=== PATIENT | male | born 1960 ===

== ENCOUNTER 2018-12-10 17:14 | Day surgery (SDC) | payer BC, MEDICARE ==
[~2018-12-10] VITALS: Ht 167.6 cm; Wt 98.1 kg
[2018-12-10] MEDS ORDERED: fentaNYL INJECTION 100 MCG/2 ML AMP IVP ONE (17:30)
--- NOTE | 2018-12-10 17:33 | ED Abdominal Pain ---
General Chief Complaint: Rect Problems Stated Complaint: UPPER ABD PAIN Source of Information: Patient Exam Limitations: No Limitations History of Present Illness Date Seen by Provider: Dec 10, 2018 Time Seen by Provider: 17:31 Initial Comments To ER per EMS with reports of abdominal cramping and bloody stools. He had colonoscopy done on Saturday at [facility] in [place], had 2 polyps removed and has since been having abdominal cramping bloody stools and generalized weakness. He takes a baby aspirin daily, history of end-stage renal disease on hemodialysis here at [facility] on Saturday, he received a full dialysis treatment today just prior to arrival here. No fevers or chills. Both security management specialist and primary care provider are out of [facility]. He does still produce urine. Timing/Duration: 2-3 Days Severity/Quality: Cramping Location: Generalized Abdomen Radiation: No Radiation Activities at Onset: None Associated Symptoms: Denies Symptoms Allergies and Home Medications Allergies Coded Allergies: No Known Drug Allergies (Unverified , 12/10/18) Patient Home Medication List Home Medication List Reviewed: Yes Review of Systems Review of Systems Constitutional: see HPI EENTM: No Symptoms Reported Respiratory: No Symptoms Reported Cardiovascular: No Symptoms Reported Gastrointestinal: See HPI, Abdominal Pain Genitourinary: No Symptoms Reported Musculoskeletal: no symptoms reported Skin: no symptoms reported Psychiatric/Neurological: No Symptoms Reported Endocrine: No Symptoms Reported Hematologic/Lymphatic: No Symptoms Reported Physical Exam Vital Signs Vital Signs - First Documented 12/10/18 17:20 Temp 36.6 Pulse 87 Resp 18 B/P (MAP) 144/94 (111) Pulse Ox 100 O2 Delivery Room Air Capillary Refill : Less Than 3 Seconds Height/Weight/BMI Height: '" Weight: lbs. oz. kg; 32.00 BMI Method: General Appearance: WD/WN, no apparent distress, other (alert and oriented no distress pleasant cooperative. Vitals are stable.) Neck: non-tender, full range of motion Respiratory: normal breath sounds, no respiratory distress, no accessory muscle use Gastrointestinal: normal bowel sounds, soft, tenderness Extremities: normal range of motion, non-tender Neurologic/Psychiatric: alert, normal mood/affect, oriented x 3 Skin: normal color, warm/dry Progress/Results/Core Measures Results/Orders Lab Results Laboratory Tests Test 12/10/18 17:23 12/10/18 17:36 Range/Units White Blood Count 9.9 4.3-11.0 10^3/uL Red Blood Count 4.03 L 4.35-5.85 10^6/uL Hemoglobin 12.9 L 13.3-17.7 G/DL Hematocrit 37 L 40-54 % Mean Corpuscular Volume 91 80-99 FL Mean Corpuscular Hemoglobin 32 25-34 PG Mean Corpuscular Hemoglobin Concent 35 32-36 G/DL Red Cell Distribution Width 12.7 10.0-14.5 % Platelet Count 181 130-400 10^3/uL Mean Platelet Volume 10.0 7.4-10.4 FL Neutrophils (%) (Auto) 78 H 42-75 % Lymphocytes (%) (Auto) 15 12-44 % Monocytes (%) (Auto) 5 0-12 % Eosinophils (%) (Auto) 1 0-10 % Basophils (%) (Auto) 0 0-10 % Neutrophils # (Auto) 7.7 1.8-7.8 X 10^3 Lymphocytes # (Auto) 1.5 1.0-4.0 X 10^3 Monocytes # (Auto) 0.5 0.0-1.0 X 10^3 Eosinophils # (Auto) 0.1 0.0-0.3 10^3/uL Basophils # (Auto) 0.0 0.0-0.1 10^3/uL Sodium Level 139 135-145 MMOL/L Potassium Level 3.7 3.6-5.0 MMOL/L Chloride Level 91 L 98-107 MMOL/L Carbon Dioxide Level 31 21-32 MMOL/L Anion Gap 17 H 5-14 MMOL/L Blood Urea Nitrogen 20 H 7-18 MG/DL Creatinine 3.70 H 0.60-1.30 MG/DL Estimat Glomerular Filtration Rate 17 BUN/Creatinine Ratio 5 Glucose Level 214 H 70-105 MG/DL Calcium Level 9.0 8.5-10.1 MG/DL Corrected Calcium 8.9 8.5-10.1 MG/DL Total Bilirubin 0.6 0.1-1.0 MG/DL Aspartate Amino Transf (AST/SGOT) 23 5-34 U/L Alanine Aminotransferase (ALT/SGPT) 32 0-55 U/L Alkaline Phosphatase 130 40-136 U/L Total Protein 7.9 6.4-8.2 GM/DL Albumin 4.1 3.2-4.5 GM/DL Stool Occult Blood Immunoassay POSITIVE H NEGATIVE My Orders Orders - EARLINE DELANEY APRN Cbc With Automated Diff (12/10/18 17:30) Comprehensive Metabolic Panel (12/10/18 17:30) Ua Culture If Indicated (12/10/18 17:30) Ed Iv/Invasive Line Start (12/10/18 17:30) Ct Abdomen/Pelvis Wo (12/10/18 17:30) Red Blood Count (12/10/18 17:30) Fentanyl Injection (Sublimaze Injection (12/10/18 17:30) Occult Blood Stool (12/10/18 17:37) Medications Given in ED Current Medications Medications Dose Ordered Sig/Harlan Route Start Time Stop Time Status Last Admin Dose Admin Fentanyl Citrate 50 mcg ONCE ONCE IVP 12/10/18 17:30 12/10/18 17:32 DC 12/10/18 18:00 50 MCG Vital Signs/I&O 12/10/18 12/10/18 17:20 18:00 Temp 36.6 36.6 Pulse 87 Resp 18 B/P (MAP) 144/94 (111) Pulse Ox 100 O2 Delivery Room Air Diagnostic Imaging Diagonstic Imaging: Xray Comments NAME: TOYA ACEVEDO [facility] REC#: [id number] PT STATUS: REG ER : 1960 PHYSICIAN: EARLINE DELANEY MARKET RESEARCH ANALYST ADMIT DATE: 12/10/18/ER Draft Date of Exam:12/10/18 CT ABDOMEN/PELVIS WO PROCEDURE: CT abdomen and pelvis without contrast. TECHNIQUE: Multiple contiguous axial images were obtained through the abdomen and pelvis without the use of intravenous contrast. Auto Exposure Controls were utilized during the CT exam to meet ALARA standards for radiation dose reduction. INDICATION: Rectal bleeding after colonoscopy. TECHNIQUE: Axial noncontrast CT of the abdomen and pelvis. COMPARISON: None. FINDINGS: There is ground-glass opacity in the lung bases, likely atelectasis. The heart is normal in size. The liver demonstrates no focal lesions. The spleen appears normal. The pancreas is normal. The adrenal glands appear normal. The kidneys are normal with no hydronephrosis or calculi seen. The bowel loops are nondistended. The colon demonstrates no focal wall thickening. The appendix is normal. No free fluid or free air is seen. No acute osseous abnormality is seen. There is calcific atherosclerosis. Degenerative changes are seen in the spine, with findings of diffuse idiopathic skeletal hyperostosis throughout the thoracic and lumbar spine. IMPRESSION: 1. No acute abnormality seen in the abdomen or pelvis. Dictated on workstation # [id number] Dict: 12/10/189 Trans: 12/10/18 1824 [id number] Interpreted by: PRIYANKA MACIAS MD Electronically signed by: Departure Communication (Admissions) Time/Spoke to Admitting Phy: 18:38 1742-patient had a stool here which was grossly bloody grape jelly consistency large volume. 1835-spoke with Dr. Bull from gastroenterology at [facility] who did the colonoscopy, he states that the polyps that he remove were fairly large, being hemodialysis patient he would recommend hospital observation overnight to evaluate for any recurrent or progressive bleeding. This could be done here or if the hospitalist here is not comfortable could be transferred to [facility]. I then spoke with Dr. Ríos here, since the patient completed a full dialysis session today he is fine with keeping the patient here and observing, repeat hemoglobin at 10 PM and 6 AM. No need to consult surgery at this point. Impression Primary Impression: Gastrointestinal hemorrhage Qualified Codes: K92.2 - Gastrointestinal hemorrhage, unspecified Disposition: ADMITTED INPATIENT Condition: Stable Admissions Decision to Admit Reason: Admit from ER (General) Decision to Admit/Date: Dec 10, 2018 Time/Decision to Admit Time: 18:38 Departure-Patient Inst. Referrals: NO,LOCAL PHYSICIAN (PCP) Primary Care Physician EARLINE DELANEY APRN Dec 10, 2018 17:33
[2018-12-10 17:37] LABS: BASOPHILS % (AUTO) 0 % (0-10); EOSINOPHILS # (AUTO) 0.1 10^3/uL (0.0-0.3); EOSINOPHILS % (AUTO) 1 % (0-10); HEMATOCRIT 37 % (40-54); HEMOGLOBIN 12.9 G/DL (13.3-17.7); LYMPHOCYTES # (AUTO) 1.5 X 10^3 (1.0-4.0); LYMPHOCYTES % (AUTO) 15 % (12-44); MEAN CORPUSCULAR HEMOGLOBIN 32 PG (25-34); MEAN CORPUSCULAR HGB CONC 35 G/DL (32-36); MEAN CORPUSCULAR VOLUME 91 FL (80-99); MONOCYTES # (AUTO) 0.5 X 10^3 (0.0-1.0); MONOCYTES % (AUTO) 5 % (0-12); NEUTROPHILS # (AUTO) 7.7 X 10^3 (1.8-7.8); NEUTROPHILS % (AUTO) 78 % (42-75); PLATELET COUNT 181 10^3/uL (130-400); RED CELL DISTRIBUTION WIDTH 12.7 % (10.0-14.5); WHITE BLOOD COUNT 9.9 10^3/uL (4.3-11.0)
[2018-12-10 17:53] LABS: ALBUMIN 4.1 GM/DL (3.2-4.5); BILIRUBIN,TOTAL 0.6 MG/DL (0.1-1.0); CREATININE SERUM 3.7 MG/DL (0.60-1.30); POTASSIUM 3.7 MMOL/L (3.6-5.0); TOTAL PROTEIN 7.9 GM/DL (6.4-8.2)
--- NOTE | 2018-12-10 18:28 | Diagnostic Imaging Report ---
PROCEDURE: CT abdomen and pelvis without contrast. TECHNIQUE: Multiple contiguous axial images were obtained through the abdomen and pelvis without the use of intravenous contrast. Auto Exposure Controls were utilized during the CT exam to meet ALARA standards for radiation dose reduction. INDICATION: Rectal bleeding after colonoscopy. TECHNIQUE: Axial noncontrast CT of the abdomen and pelvis. COMPARISON: None. FINDINGS: There is ground-glass opacity in the lung bases, likely atelectasis. The heart is normal in size. The liver demonstrates no focal lesions. The spleen appears normal. The pancreas is normal. The adrenal glands appear normal. The kidneys are normal with no hydronephrosis or calculi seen. The bowel loops are nondistended. The colon demonstrates no focal wall thickening. The appendix is normal. No free fluid or free air is seen. No acute osseous abnormality is seen. There is calcific atherosclerosis. Degenerative changes are seen in the spine, with findings of diffuse idiopathic skeletal hyperostosis throughout the thoracic and lumbar spine. IMPRESSION: 1. No acute abnormality seen in the abdomen or pelvis. Dictated by: Dictated on workstation # [id number]
--- NOTE | 2018-12-10 19:45 | NUR ---
UA WAS NOT COLLECTED IN THE ER, PT UNABLE TO GO.
--- NOTE | 2018-12-10 19:53 | NUR ---
TOYA ACEVEDO admitted to room 405-1, with an admitting diagnosis of GI BLEED POST COLONOSCOPY, on 12/10/18 from ED via , accompanied by ED STAFF.TOYA ACEVEDO introduced to surroundings, call light, bed controls, phone, TV, temperature control, lights, meal times, smoking policy, visitor policy, side rail policy, bathrooms and showers. Patient Rights given to patient in the handbook.TOYA ACEVEDO verbalizes understanding that [facility] is not responsible for the loss or damage to any personal effects or valuables that are kept in the patients posession during their hospitalization.
[2018-12-10] MEDS ORDERED: CATHETER FLUSH 10 ML SYR IV PRN (20:00)
[2018-12-10 20:35] VITALS: BP 143/80
[2018-12-10] MEDS: LACTATED RINGERS 1,000 ML IV SCH (21:12)
[2018-12-10 22:11] LABS: HEMOGLOBIN 11.9 G/DL (13.3-17.7)
[2018-12-11] VITALS (7 sets, daily range): BP systolic 104–147; BP diastolic 60–83
[2018-12-11 06:29] LABS: BASOPHILS % (AUTO) 0 % (0-10); EOSINOPHILS # (AUTO) 0.1 10^3/uL (0.0-0.3); EOSINOPHILS % (AUTO) 1 % (0-10); HEMATOCRIT 30 % (40-54); HEMOGLOBIN 10.1 G/DL (13.3-17.7); LYMPHOCYTES # (AUTO) 1.7 X 10^3 (1.0-4.0); LYMPHOCYTES % (AUTO) 23 % (12-44); MEAN CORPUSCULAR HEMOGLOBIN 32 PG (25-34); MEAN CORPUSCULAR HGB CONC 34 G/DL (32-36); MEAN CORPUSCULAR VOLUME 94 FL (80-99); MEAN PLATELET VOLUME 10.3 FL (7.4-10.4); MONOCYTES # (AUTO) 0.5 X 10^3 (0.0-1.0); MONOCYTES % (AUTO) 7 % (0-12); NEUTROPHILS % (AUTO) 68 % (42-75); PLATELET COUNT 151 10^3/uL (130-400); RED CELL DISTRIBUTION WIDTH 12.6 % (10.0-14.5); WHITE BLOOD COUNT 7.3 10^3/uL (4.3-11.0)
[2018-12-11] MEDS: inSUlin ASPART (NovoLOG) 1 UNIT/0.01 ML (CHARGE PER UNIT) SC SCH ×4 (07:11→22:13)
[2018-12-11] MEDS ORDERED: INSU300I SC (09:15)
[2018-12-11] MEDS ORDERED: SILD100T67 PO (09:15)
[2018-12-11] MEDS ORDERED: ATOR80TA76 PO (09:15)
[2018-12-11] MEDS ORDERED: INSU100I14 SC (09:15)
[2018-12-11] MEDS ORDERED: SEMA0.25 SC (09:15)
[2018-12-11] MEDS ORDERED: HYDR-3924 PO (09:15)
[2018-12-11] MEDS ORDERED: METO100T12 PO (09:15)
[2018-12-11] MEDS ORDERED: CALC667C10 PO ×2 (09:15)
--- NOTE | 2018-12-11 09:39 | Consultation - Surgery ---
History of Present Illness History of Present Illness Patient Consulted On(sarah/time) 12/11/18 09:33 Time Seen by Provider: 09:02 History of Present Illness Surgery asked to consult regarding abdominal pain and bleeding. HPI per ED: To ER per EMS with reports of abdominal cramping and bloody stools. He had colonoscopy done on Saturday at [facility] in [place], had 2 polyps removed and has since been having abdominal cramping bloody stools and generalized weakness. He takes a baby aspirin daily, history of end-stage renal disease on hemodialysis here at [facility] on Saturday, he received a full dialysis treatment today just prior to arrival here. No fevers or chills. Both traveling representative and primary care provider are out of [facility]. He does still produce urine. Timing/Duration: 2-3 Days Severity/Quality: Cramping Location: Generalized Abdomen Radiation: No Radiation Activities at Onset: None Associated Symptoms: Denies Symptoms When I spoke to pt he states the pain is not that bad; maybe 1-2 out of 10 and pointed directly under the ribs on both sides. He is apparently being worked up for possible transplant and had colonoscopy for that. He stated he saw a little bit of blood Saturday morning, but then after dialysis he saw a lot. Nurse from last night also saw bright red blood in BM. Pt gets his dialysis treatments in [place]. Allergies and Home Medications Allergies Coded Allergies: No Known Drug Allergies (Unverified , 12/10/18) Home Medications Atorvastatin Calcium 80 Mg Tablet, 80 MG PO HS, (Reported) Hydralazine HCl 50 Mg Tablet, 50 MG PO HS, (Reported) Insulin Glargine,Hum.rec.anlog 300 Unit/1 Ml Insuln.pen, 50 UNITS SC HS, (Reported) Metoprolol Tartrate 100 Mg Tablet, 100 MG PO BID, (Reported) Semaglutide 0.25 Mg/0.2 Ml Pen.injctr, 0.5 MG SC Mo, (Reported) Sildenafil Citrate 100 Mg Tablet, 50 MG PO UD PRN for ED, (Reported) TAKES 1/2 (100MG) TABLET Patient Home Medication List Home Medication List Reviewed: Yes Past Ntdvady-Ithprz-Rmgqcv Hx Patient Social History Alcohol Use: Denies Use Recreational Drug Use: No Smoking Status: Never a Smoker Recent Foreign Travel: No Contact w/Someone Who Travel: No Recent Infectious Disease Expo: No Recent Hopitalizations: No Physical Abuse Screen: No Sexual Abuse: No Immunizations Up To Date Date of Pneumonia Vaccine: Dec 03, 2018 Date of Influenza Vaccine: Dec 03, 2018 Seasonal Allergies Seasonal Allergies: No Surgeries History of Surgeries: Yes (DIALYSIS PORT) Surgeries: Dialysis Respiratory History of Respiratory Disorde: No Cardiovascular History of Cardiac Disorders: Yes Cardiac Disorders: High Cholesterol, Hypertension Neurological History of Neurological Disord: No Genitourinary History of Genitourinary Disor: Yes Genitourinary Disorders: Dialysis Gastrointestinal History of Gastrointestinal Di: Yes Gastrointestinal Disorders: Polyps Musculoskeletal History of Musculoskeletal Dis: No Endocrine History of Endocrine Disorders: Yes Endocrine Disorders: Diabetes, Insulin dep HEENT History of HEENT Disorders: No Cancer History of Cancer: No Psychosocial History of Psychiatric Problem: No Integumentary History of Skin or Integumenta: No Family Medical History Significant Family History: Other Conditions/Hx (Pt states he doesn't know if any family members have medical problems, he denied they had DM, HTN) Review of Systems-General Constitutional: No chills, No diaphoresis; malaise, weakness EENTM: No blurred vision, No double vision, No mouth pain, No mouth swelling, No epistaxis Respiratory: No cough, No dyspnea on exertion, No hemoptysis Cardiovascular: No chest pain, No edema, No palpitations Gastrointestinal: abdominal pain; No hematemesis, No jaundice, No nausea, No vomiting Genitourinary: No hematuria; hesitancy, other (pt is on dialysis but still makes some urine) Musculoskeletal: joint pain, muscle stiffness Skin: No change in color, No change in hair/nails Psychiatric/Neurological: Denies Anxiety, Denies Depressed, Denies Seizure, Denies Tremors Other pt denies any hx of abnormal bleeding or bruising Physical Exam-General Problems Physical Exam Vital Signs Vital Signs - First Documented 12/10/18 17:20 Temp 36.6 Pulse 87 Resp 18 B/P (MAP) 144/94 (111) Pulse Ox 100 O2 Delivery Room Air Capillary Refill : Less Than 3 Seconds General Appearance: WD/WN, no apparent distress Eyes: Bilateral Eye PERRL, Bilateral Eye EOMI HEENT: pharynx normal; No scleral icterus (R), No scleral icterus (L), No pale conjunctivae (R), No pale conjunctivae (L) Neck: non-tender, full range of motion, supple, normal inspection Respiratory: chest non-tender, lungs clear, normal breath sounds, no respiratory distress, no accessory muscle use Cardiovascular: regular rate, rhythm, no murmur Gastrointestinal: normal bowel sounds, soft, no organomegaly, no pulsatile mass, tenderness (very minimal), hernia (incarcerated umbilical hernia) Extremities: no pedal edema, no calf tenderness, normal capillary refill, other (fistula in left arm, good thrill and pulse) Neurologic/Psychiatric: animal ride attendant II-XII nml as tested, normal mood/affect, oriented x 3 Skin: normal color, warm/dry Lymphatic: no adenopathy (neck, axilla or groin) Data Review Labs Laboratory Tests 12/10/18 17:23: White Blood Count 9.9, Red Blood Count 4.03L, Hemoglobin 12.9L, Hematocrit 37L, Mean Corpuscular Volume 91, Mean Corpuscular Hemoglobin 32, Mean Corpuscular Hemoglobin Concent 35, Red Cell Distribution Width 12.7, Platelet Count 181, Mean Platelet Volume 10.0, Neutrophils (%) (Auto) 78H, Lymphocytes (%) (Auto) 15, Monocytes (%) (Auto) 5, Eosinophils (%) (Auto) 1, Basophils (%) (Auto) 0, Neutrophils # (Auto) 7.7, Lymphocytes # (Auto) 1.5, Monocytes # (Auto) 0.5, Eosinophils # (Auto) 0.1, Basophils # (Auto) 0.0, Sodium Level 139, Potassium Level 3.7, Chloride Level 91L, Carbon Dioxide Level 31, Anion Gap 17H, Blood Urea Nitrogen 20H, Creatinine 3.70H, Estimat Glomerular Filtration Rate 17, BUN/Creatinine Ratio 5, Glucose Level 214H, Calcium Level 9.0, Corrected Calcium 8.9, Total Bilirubin 0.6, Aspartate Amino Transf (AST/SGOT) 23, Alanine Aminotransferase (ALT/SGPT) 32, Alkaline Phosphatase 130, Total Protein 7.9, Albumin 4.1 12/10/18 17:36: Stool Occult Blood Immunoassay POSITIVEH 12/10/18 21:36: Glucometer 155H 12/10/18 22:03: Hemoglobin 11.9L, Hematocrit 35L 12/11/18 05:30: White Blood Count 7.3, Red Blood Count 3.21L, Hemoglobin 10.1L, Hematocrit 30L, Mean Corpuscular Volume 94, Mean Corpuscular Hemoglobin 32, Mean Corpuscular Hemoglobin Concent 34, Red Cell Distribution Width 12.6, Platelet Count 151, Mean Platelet Volume 10.3, Neutrophils (%) (Auto) 68, Lymphocytes (%) (Auto) 23, Monocytes (%) (Auto) 7, Eosinophils (%) (Auto) 1, Basophils (%) (Auto) 0, Neutrophils # (Auto) 5.0, Lymphocytes # (Auto) 1.7, Monocytes # (Auto) 0.5, Eosinophils # (Auto) 0.1, Basophils # (Auto) 0.0 12/11/18 06:59: Glucometer 153H Assessment/Plan Assessment/Plan Assessment/Plan Rectal bleed - S/P colonoscopy with Polypectomy Anemia secondary to above ESRD on dialysis I was able to get colonoscopy report from [facility] in [place]; pt had 2 sessile polyps that were 15mm removed with hot snare and had a poor prep. Pt needs a colonoscopy to locate bleeding and make sure it is stopping or do something to stop the bleeding. He is anemic now and unfortunately the dialysis will only make bleeding worse. I talked to pt about the colonoscopy, he didn't really want to stay in the hospital but understood the reasoning. I will go talk to him again and make sure he is ok with doing colonoscopy and answer all questions. Clinical Quality Measures DVT/VTE Risk/Contraindication: Risk Factor Score Per Nursin RFS Level Per Nursing on Admit: 2=Moderate PETER JUARES DO Dec 11, 2018 09:39
--- NOTE | 2018-12-11 09:39 | NUR ---
SPOKE WITH THE PATIENT ABOUT HIS MEDICATIONS. WE WENT OVER THE EXT MED HX AND HE VERIFIED HOW HE TAKES THEM. HE STATES HE ONLY HAS 3 ORAL MEDICATIONS AND TWO INJECTABLES. HE DOES NOT TAKE ANYTHING OTC. HE TAKES THE FOLLOWING DIFFERENTLY THAN PRESCRIBED: 11-18-18 HYDRALAZINE 50MG #60 FOR 20 DAYS (ONLY TAKES 1 AT HS) 11-18-18 LIPITOR 80MG #45 FOR 90 DAYS (ONLY TAKES 1 HS) 11-13-18 CALCIUM ACETATE 667MG #180 FOR 30 DAYS (STATES HE NO LONGER TAKING THIS) 09-07-18 OZEMPIC 0.25MG - 0.5MG WEEKLY (HE STATES HE ONLY USES 0.25MG WEEKLY ON MONDAYS)
--- NOTE | 2018-12-11 10:46 | History & Physical-Hospitalist ---
History of Present Illness HPI/Chief Complaint Chong Mcdonald is a 58yoM with PMH ESRD on HD MWF, HLD, HTN, T2DM on insulin, who presented with bright red blood per rectum. He is gabonese-speaking and we used an major sales associate during my exam. He reports that he had a colonoscopy on Saturday and they removed two polyps. The endoscopy was performed as part of a renal transplant evaluation. He did not have any bleeding post-operatively, but after he dialyzed on Saturday, he had bright red blood and dark clots. The bleeding continued and he presented to the ER. He also reports abdominal pain which has since resolved. He denies lightheadedness and dizziness. He denies chest pain and dyspnea. He denies nausea and vomiting. He dialyzes in [place] at [facility]. His next HD appointment is Saturday at 1130. He occasionally misses appointments but not frequently. He lives in [place], [place]. Source: patient Exam Limitations: language barrier Date Seen 12/11/18 Time Seen by a Provider: 09:00 Attending Physician Danya Heaton MD PCP No,Local Physician Referring Physician Date of Admission Dec 10, 2018 at 18:43 Home Medications & Allergies Home Medications Reviewed patient Home Medication Reconciliation performed by pharmacy medication reconciliations maintenance department technician and/or nursing. Patients Allergies have been reviewed. Allergies Allergies Coded Allergies No Known Drug Allergies (Etyzymtheu38/2/19) Past Xgjfhzn-Gaador-Tuuurt Hx Past Med/Social Hx: Reviewed Nursing Past Med/Soc Hx Patient Social History Alcohol Use: Denies Use Recreational Drug Use: No Smoking Status: Never a Smoker Physical Abuse Screen: No Sexual Abuse: No Recent Foreign Travel: No Contact w/other who traveled: No Recent Hopitalizations: No Recent Infectious Disease Expo: No Immunizations Up To Date Date of Pneumonia Vaccine: Dec 03, 2018 Date of Influenza Vaccine: Dec 03, 2018 Seasonal Allergies Seasonal Allergies: No Past Medical History Surgeries: Dialysis Cardiac: High Cholesterol, Hypertension Genitourinary: Dialysis Gastrointestinal: Polyps Endocrine: Diabetes, Insulin dep Family History Other Conditions/Hx (Pt states he doesn't know if any family members have medical problems, he denied they had DM, HTN) Review of Systems Constitutional: no symptoms reported, see HPI EENTM: no symptoms reported Respiratory: no symptoms reported Cardiovascular: no symptoms reported Gastrointestinal: other (hematochezia) Genitourinary: no symptoms reported Musculoskeletal: no symptoms reported Skin: no symptoms reported Psychiatric/Neurological: No Symptoms Reported Physical Exam Physical Exam Vital Signs Vital Signs - First Documented 12/10/18 17:20 Temp 36.6 Pulse 87 Resp 18 B/P (MAP) 144/94 (111) Pulse Ox 100 O2 Delivery Room Air Capillary Refill : Less Than 3 Seconds Height, Weight, BMI Height: '" Weight: lbs. oz. kg; 34.92 BMI Method: General Appearance: No Apparent Distress, WD/WN HEENT: PERRL/EOMI, Pharynx Normal Neck: Normal Inspection, Supple Respiratory: Lungs Clear, Normal Breath Sounds, No Respiratory Distress Cardiovascular: Regular Rate, Rhythm, No Murmur Gastrointestinal: Normal Bowel Sounds, Non Tender, Soft Extremity: Normal Inspection, Non Tender, Pedal Edema, Other (right arm fistula with dressing in place) Neurologic/Psychiatric: Alert, Oriented x3, No Motor/Sensory Deficits, Normal Mood/Affect Skin: Normal Color, Warm/Dry Lymphatic: No Adenopathy Results Results/Procedures Labs Laboratory Tests 12/10/18 17:23 12/10/18 22:03 12/11/18 05:30 Patient resulted labs reviewed. Assessment/Plan Admission Diagnosis Bright red blood per rectum Admission Status: Observation Reason for Inpatient Admission: Post-polypectomy bleeding Anemia ESRD on HD Assessment and Plan Bright red blood per rectum Post-polypectomy bleeding Acute blood loss anemia -Hgb 10.1 this morning, down from 12.9 on admission -Continued hematochezia overnight and this morning -Obtain reports from colonoscopy at [facility] in [place] -Consult surgery, Dr. Hanson, for possible endoscopic intervention -Remain NPO for possible procedure -Repeat H/H tomorrow morning or sooner with large volume bleeding or worsening symptoms ESRD on HD MWF -BMP unremarkable on arrival, elevated creatinine -Plan to attempt discharge prior to HD appointment tomorrow HLD -Continue statin HTN -Continue hydralazine T2DM -Home regimen: Lantus 50 units nightly -Decrease to Levemir 25 units nightly -SSI Diagnosis/Problems Diagnosis/Problems (1) Bright red blood per rectum Status: Acute (2) Post-polypectomy bleeding Status: Acute (3) Acute blood loss anemia Status: Acute (4) ESRD (end stage renal disease) on dialysis Status: Chronic (5) HLD (hyperlipidemia) Status: Chronic (6) HTN (hypertension) Status: Chronic Qualifiers: Hypertension type: secondary to other renal disorders Qualified Codes: I15.1 - Hypertension secondary to other renal disorders; N28.89 - Other specified disorders of kidney and ureter Clinical Quality Measures DVT/VTE Risk/Contraindication: Risk Factor Score Per Nursin RFS Level Per Nursing on Admit: 2=Moderate DANYA HEATON MD Dec 11, 2018 10:46
--- NOTE | 2018-12-11 10:58 | NUR ---
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 Web Solutions Architect offered blessing.
[2018-12-11] MEDS ORDERED: BISACODYL 5 MG (DULCOLAX) TABLET PO NR (16:30)
[2018-12-11] MEDS ORDERED: POLYETHYLENE GLYCOL 17 GM (MIRALAX) PACK PO NR (16:30)
[2018-12-11] MEDS: LACTATED RINGERS 1,000 ML IV SCH (16:47)
[2018-12-11] MEDS ORDERED: hydrALAZINE (APRESOLINE) 25 MG TAB PO SCH (21:00)
[2018-12-11] MEDS: meTOprolol TARTRATE 50 MG (LOPRESSOR) TAB PO SCH (22:12)
[2018-12-12] VITALS (7 sets, daily range): BP systolic 101–135; BP diastolic 52–71
[2018-12-12 06:04] LABS: HEMOGLOBIN 9.8 G/DL (13.3-17.7)
[2018-12-12] MEDS: inSUlin ASPART (NovoLOG) 1 UNIT/0.01 ML (CHARGE PER UNIT) SC SCH ×2 (06:41→11:07)
[2018-12-12 07:52] LABS: CALCIUM 7.9 MG/DL (8.5-10.1); CREATININE SERUM 6.6 MG/DL (0.60-1.30); POTASSIUM 4.2 MMOL/L (3.6-5.0)
[2018-12-12] MEDS ORDERED: proPOfol 200 MG/20 ML (DIPRIVAN) VIAL IV ONE (08:20)
--- NOTE | 2018-12-12 08:30 | Progress Note - Surgery ---
TRISTEN PINA,MED STUDENT 12/12/18 0830: Subjective Date Seen by a Provider: Dec 12, 2018 Time Seen by a Provider: 07:20 Subjective/Events-last exam Patient seen and examined. he states he continued to notice bright red blood in his stools yesterday and early this morning. he states he completed the prep for colonoscopy scheduled for this morning. his last bowel movement was at 2 am. He denies any abdominal pain, fevers, nausea, vomiting, dizziness, shortness of breath at this time. Review of Systems General: No Chills, No Fatigue Pulmonary: No Dyspnea, No Cough Cardiovascular: No: Chest Pain, Edema Gastrointestinal: Diarrhea, Hematochezia; No: Nausea, Vomiting, Abdominal Pain Genitourinary: No Dysuria, No Hematuria Neurological: No: Weakness, Confusion, Other (dizziness) Objective Exam Vital Signs Date Time Temp Pulse Resp B/P (MAP) Pulse Ox O2 Delivery O2 Flow Rate FiO2 12/12/18 04:23 36.5 61 18 121/71 (88) 93 Room Air 12/12/18 01:00 68 12/11/18 23:51 36.9 74 20 104/66 (79) 96 Room Air 12/11/18 20:00 Room Air 12/11/18 20:00 36.2 68 18 139/73 (95) 98 Room Air 12/11/18 19:00 66 12/11/18 16:00 36.4 78 20 141/65 (90) 97 Room Air 12/11/18 13:00 80 12/11/18 12:00 36.7 83 20 122/68 (86) 95 Room Air I & O 12/12/18 06:59 Intake Total 2791 ml Balance 2791 ml Capillary Refill : Less Than 3 Seconds General Appearance: No Apparent Distress, WD/WN HEENT: PERRL/EOMI, Moist Mucous Membranes Neck: Normal Inspection, Supple Respiratory: Lungs Clear, Normal Breath Sounds, No Respiratory Distress Cardiovascular: Regular Rate, Rhythm, No Murmur Peripheral Pulses: 2+ Radial Pulses (R), 2+ Radial Pulses (L) Gastrointestinal: normal bowel sounds, non tender, soft, hernia (incarcerated umbilical hernia) Extremity: No Calf Tenderness, No Pedal Edema, Other Neurologic/Psychiatric: Alert, Oriented x3, Normal Mood/Affect Skin: Normal Color, Warm/Dry Results Lab Laboratory Tests 12/11/18 11:52: Glucometer 144H 12/11/18 16:08: Glucometer 179H 12/11/18 20:51: Glucometer 249H 12/12/18 05:15: Hemoglobin 9.8L, Hematocrit 29L, Sodium Level 139, Potassium Level 4.2, Chloride Level 101, Carbon Dioxide Level 25, Anion Gap 13, Blood Urea Nitrogen 36H, Creatinine 6.60#H, Estimat Glomerular Filtration Rate 9, BUN/Creatinine Ratio 5, Glucose Level 127H, Calcium Level 7.9L 12/12/18 06:40: Glucometer 136H Assessment/Plan Assessment/Plan Assessment/Plan Rectal bleed - S/P colonoscopy with Polypectomy Anemia secondary to above ESRD on dialysis Colonoscopy scheduled for this morning to locate possible bleeding from previous polypectomy on Saturday at [facility], removed 2 15mm sessile polyps, 1 in ascending colon and 1 in transverse colon. Patient to be NPO until procedure. Clinical Quality Measures DVT/VTE Risk/Contraindication: Risk Factor Score Per Nursin RFS Level Per Nursing on Admit: 2=Moderate HARSHAL HANSON DO 12/12/18 0937: Subjective Time Seen by a Provider: 08:31 Subjective/Events-last exam Pt seen and examined, said he had no bleeding this am but did yesterday with prep. Denies abdominal pain. Assessment/Plan Assessment/Plan Assessment/Plan Plan to go ahead with colonoscopy. Consent obtained, pt had no questions. Supervisory-Addendum Brief Verification & Attestation Participated in pt care: history, MDM, physical Personally performed: exam, history, MDM Care discussed with: Medical Student Procedures: n/a Verification and Attestation of Medical Student E/M Service A medical student performed and documented this service in my presence. I reviewed and verified all information documented by the medical student and made modifications to such information, when appropriate. I personally performed the physical exam and medical decision making. Harshal Hanson, Dec 12, 2018,09:37 TRISTEN PINA MED STUDENT Dec 12, 2018 08:30 HARSHAL HANSON DO Dec 12, 2018 09:37
[2018-12-12] MEDS ORDERED: LACTATED RINGERS 1,000 ML IV ONE (08:39)
[2018-12-12] MEDS ORDERED: NS IV 500 ML 500 ML ONE (08:40)
[2018-12-12] MEDS ORDERED: ESMOLOL 100 MG/10 ML (BREVIBLOC) VIAL ONE (08:48)
[2018-12-12] MEDS ORDERED: EPINEPHrine INJECTION 1 MG/ML AMP ONE (09:07)
--- NOTE | 2018-12-12 09:42 | Progress Note-Post Operative ---
Post-Operative Progess Note Surgeon (s)/Client Relation Specialist (s) Surgeon PETER JUARSE DO Client Relation Specialist: SALO Martinez Pre-Operative Diagnosis Rectal bleed, Anemia Post-Operative Diagnosis Same plus Bleeding polypectomy site Polyp internal hemorrhoids Procedure & Operative Findings Date of Procedure 12/12/18 Procedure Performed/Findings Colonoscopy with snare Colonoscopy with control of bleeding Anesthesia Type IV sedation by RETAIL STORE ASSISTANT Estimated Blood Loss Estimated blood loss (mL): scant Specimens/Packing Specimens Removed Descending colon polyp PETER JUARES DO Dec 12, 2018 09:42
[2018-12-12] MEDS ORDERED: EPINEPHrine INJECTION 1 MG/ML AMP IJ ONE (09:45)
[2018-12-12] MEDS: meTOprolol TARTRATE 50 MG (LOPRESSOR) TAB PO SCH (10:22)
--- NOTE | 2018-12-12 10:31 | Discharge Summary ---
Discharge Summary Hospital Course Problems/Dx: (1) Bright red blood per rectum Status: Acute (2) Post-polypectomy bleeding Status: Acute (3) Acute blood loss anemia Status: Acute (4) ESRD (end stage renal disease) on dialysis Status: Chronic (5) HLD (hyperlipidemia) Status: Chronic (6) HTN (hypertension) Status: Chronic Qualifiers: Qualified Codes: I15.1 - Hypertension secondary to other renal disorders; N28.89 - Other specified disorders of kidney and ureter Hospital Course Date of Admission: Dec 10, 2018 at 18:43 Admission Diagnosis : Bright red blood per rectum Family Physician/Provider: Date of Discharge: 12/12/18 Discharge Diagnosis: Post-polypectomy bleeding Hospital Course: Chong Mcdonald is a 58yoM with PMH HTN, T2DM, ESRD on HD MWF, who presented with bright red blood per rectum following a colonoscopy as a part of a renal transplant evaluation. We admitted him to observation and he continued to bleed, so general surgery was consulted. He was prepped for a repeat colonoscopy and was found to have bleeding at the site of the previous polypectomy as well as another polyp which was removed. He also had internal hemorrhoids which were not bleeding. He will resume his outpatient HD schedule on discharge. Labs and Pending Lab Test: Laboratory Tests 12/11/18 11:52: Glucometer 144H 12/11/18 16:08: Glucometer 179H 12/11/18 20:51: Glucometer 249H 12/12/18 05:15: Hemoglobin 9.8L, Hematocrit 29L, Sodium Level 139, Potassium Level 4.2, Chloride Level 101, Carbon Dioxide Level 25, Anion Gap 13, Blood Urea Nitrogen 36H, Creatinine 6.60#H, Estimat Glomerular Filtration Rate 9, BUN/Creatinine Ratio 5, Glucose Level 127H, Calcium Level 7.9L 12/12/18 06:40: Glucometer 136H Home Meds Active Reported Cam Call (Insulin Glargine,Hum.rec.anlog) 300 Unit/1 Ml Insuln.pen 50 Units SC HS Ozempic (Semaglutide) 0.25 Mg/0.2 Ml Pen.injctr 0.25 Mg SC MO Sildenafil Citrate 100 Mg Tablet 50 Mg PO UD PRN TAKES 1/2 (100MG) TABLET Atorvastatin Calcium 80 Mg Tablet 80 Mg PO HS Hydralazine HCl 50 Mg Tablet 50 Mg PO HS Metoprolol Tartrate 100 Mg Tablet 100 Mg PO BID Assessment/Pt Instructions Take medications as prescribed. Follow up with your primary care physician. Go to your dialysis appointment today. Return if you have any lightheadedness/dizziness, chest pain, shortness of breath, or if your rectal bleeding persists or worsens. Discharge Planning: <30 minutes discharge planning Discharge Instructions Discharge Diet: No Restrictions Activity as Tolerated: Yes Consultations General surgery Discharge Physical Examination Vital Signs Vital Signs Date Time Temp Pulse Resp B/P (MAP) Pulse Ox O2 Delivery O2 Flow Rate FiO2 12/12/18 09:30 66 20 99 Room Air 12/12/18 09:20 6 12/12/18 08:00 36.3 135/65 (88) General Appearance: No Apparent Distress, WD/WN HEENT: PERRL/EOMI, Pharynx Normal Respiratory: Lungs Clear, Normal Breath Sounds, No Respiratory Distress Cardiovascular: Regular Rate, Rhythm, No Edema, No Murmur Gastrointestinal: Normal Bowel Sounds, Non Tender, Soft Extremity: Normal Inspection, Non Tender, No Pedal Edema Skin: Normal Color Neurologic/Psychiatric: Alert, Oriented x3, No Motor/Sensory Deficits Allergies: Coded Allergies: No Known Drug Allergies (Unverified , 12/10/18) Discharge Summary Date of Admission Dec 10, 2018 at 18:43 Date of Discharge Discharge Date: Dec 12, 2018 Discharge Time: 10:26 Admission Diagnosis Bright red blood per rectum Consults/Procedures Consulations General surgery Procedures Colonoscopy Discharge Diagnosis Post-polypectomy bleeding (1) Bright red blood per rectum Status: Acute (2) Post-polypectomy bleeding Status: Acute (3) Acute blood loss anemia Status: Acute (4) ESRD (end stage renal disease) on dialysis Status: Chronic (5) HLD (hyperlipidemia) Status: Chronic (6) HTN (hypertension) Status: Chronic Qualifiers: Qualified Codes: I15.1 - Hypertension secondary to other renal disorders; N28.89 - Other specified disorders of kidney and ureter Clinical Quality Measures DVT/VTE Risk/Contraindication: Risk Factor Score Per Nursin RFS Level Per Nursing on Admit: 2=Moderate CHASE HEATON MD Dec 12, 2018 10:30
--- NOTE | 2018-12-12 14:52 | OPERATIVE REPORT ---
DATE OF SERVICE: PREOPERATIVE DIAGNOSES: 1. Rectal bleed. 2. Anemia. 3. End-stage renal disease. POSTOPERATIVE DIAGNOSES: 1. Rectal bleed. 2. Anemia. 3. End-stage renal disease. 4. Bleeding polypectomy site. 5. Colon polyp. 6. Internal hemorrhoids. PROCEDURES: 1. Colonoscopy with snare polypectomy. 2. Colonoscopy with control of bleeding. SURGEON: Harshal Hanson DO SHEET METAL JOURNEYMAN: Izabella Wilson MS3 ANESTHESIA: IV sedation by MEAL ATTENDANT. SPECIMEN: Descending colon polyp. BLOOD LOSS: Scant. FLUIDS: Per anesthesia. POSTOPERATIVE CONDITION: Stable. INDICATION FOR PROCEDURE: The patient is a 58-year-old male who has end-stage renal disease, gets dialysis and needed a colonoscopy for a transplant had that done on Saturday at outside institution. He found 2 large polyps removed, then he came in bleeding after his dialysis appointment, continued to bleed, his blood level dropped and he needed a scope to make sure we could control this bleeding since we could continue his dialysis. FINDINGS: The patient had one site that looked like it had been bleeding and this was controlled and then he had a polypectomy and had a bleeding controlled at this site as well. PROCEDURE NOTE: After informed consent was obtained, the patient was brought to the endoscopy suite and placed in the left lateral decubitus position. He was administered IV sedation by the MEAL ATTENDANT who monitored his vitals the entire time, heart rate, blood pressure and pulse ox and the scope was inserted, pushed all the way in. On the way in, noted that it looked like 3 actual sites of previous polypectomies, 2 looked like they had no sequelae of bleeding, but one looked like it did have a sequelae of bleeding. This would look like it was in the ascending colon, there were actually 2 others that looked like they were in the transverse colon got all the way to cecum, took a picture of appendiceal orifice, noted the ileocecal valve and then slowly withdrew the scope, insufflating to look circumferentially at the staley, looking the cecum up the ascending colon and the top the ascending colon, saw the area that looked like it was probably the cause of the bleeding, elected to use a forceps with cautery to cauterize this to control the bleeding stopped any bleeding, took a picture. I then continued to pass, took a picture of the other 2 sites looked like of the snare polypectomies up in the transverse colon and then got to the splenic flexure and went into the descending colon and descending colon saw another polyp, took a picture of this and then did snare polypectomy. Unfortunately, the snare polypectomy cautery did not work and it bled afterwards. Tried to use the cautery, it did not work, so then had to switch and use a lidocaine with epinephrine to inject around this area, this stopped the bleeding. Then continued down into the sigmoid colon and finally into the rectum, retroflexed the rectal vault, saw some internal hemorrhoids. Scope was removed. The patient tolerated the procedure. He was recovered in endoscopy suite. Job ID: [id number] DocumentID: [id number] Dictated Date: 12/12/2018 09:41:51 Trapeze Artist Date: 12/12/2018 14:52:05 Dictated By: DO JENNIFER LAINEZ
== END 2018-12-12 10:22 | disposition home or self-care (01) ==
LOC: EDUNIT# 17:14 → ER 17:15 → UNDOADMOB 18:43 → 4TH 18:43 → SDC 19:53 → UNDODISOB 12-12 11:45
PROVIDERS: ATTEND Internal Medicine
DX: D12.4 Benign neoplasm of descending colon (principal); K91.840 Postprocedural hemorrhage of a digestive system organ or structure following a digestive system procedure; K62.5 Hemorrhage of anus and rectum; D64.9 Anemia, unspecified; N18.6 End stage renal disease; K64.8 Other hemorrhoids; K92.2 Gastrointestinal hemorrhage, unspecified; I12.0 Hypertensive chronic kidney disease with stage 5 chronic kidney disease or end stage renal disease; E11.22 Type 2 diabetes mellitus with diabetic chronic kidney disease; Z79.4 Long term (current) use of insulin; Z99.2 Dependence on renal dialysis; Z79.82 Long term (current) use of aspirin; Z79.899 Other long term (current) drug therapy
CPT/HCPCS: 36415; 74176; 80048; 80053; 82274; 82962; 85014; 85018; 85025; 96374; G0378

== ENCOUNTER 2019-02-09 16:14 | Emergency (ER) | payer BC, MEDICARE ==
[~2019-02-09] VITALS: Ht 173.7 cm; Wt 90.0 kg
[~2019-02-09 16:14] MED LIST: ATOR80TA76 PO; CALC667C10 PO; HYDR-3924 PO; INSU100I14 SC; INSU300I SC; METO100T12 PO; SEMA0.25 SC; SILD100T67 PO
[2019-02-09] MEDS ORDERED: ACETAMINOPHEN 500 MG TAB (TYLENOL) PO STA (16:20)
--- NOTE | 2019-02-09 16:20 | ED Headache ---
General Stated Complaint: HEADACHE Source: patient Exam Limitations: language barrier History of Present Illness Date Seen by Provider: Feb 09, 2019 Time Seen by Provider: 16:20 Initial Comments 58-year-old male presents with a headache. Patient was at dialysis with about 44 minutes left in his dialysis when he got a headache. Headache came over his back and over his left eye. Patient felt like there is a lot of pressure behind his left eye. Patient reports he never had anything like this before. He does have known decreased vision in his left eye and is scheduled to see a specialist. Patient has limited Slovenian and so the history may be limited. He denies any nausea vomiting fevers or chills. Allergies and Home Medications Allergies Coded Allergies: No Known Drug Allergies (Unverified , 12/10/18) Home Medications Atorvastatin Calcium 80 Mg Tablet, 80 MG PO HS, (Reported) Hydralazine HCl 50 Mg Tablet, 50 MG PO HS, (Reported) Insulin Glargine,Hum.rec.anlog 300 Unit/1 Ml Insuln.pen, 50 UNITS SC HS, (Reported) Metoprolol Tartrate 100 Mg Tablet, 100 MG PO BID, (Reported) Semaglutide 0.25 Mg/0.2 Ml Pen.injctr, 0.25 MG SC Mo, (Reported) Sildenafil Citrate 100 Mg Tablet, 50 MG PO UD PRN for ED, (Reported) TAKES 1/2 (100MG) TABLET Patient Home Medication List Home Medication List Reviewed: Yes Review of Systems Review of Systems Constitutional: No chills Eyes: See HPI Respiratory: No cough, No short of breath Cardiovascular: No chest pain, No palpitations Gastrointestinal: No diarrhea, No nausea, No vomiting Musculoskeletal: no symptoms reported Psychiatric/Neurological: See HPI Past Wfjkufl-Wbhwwi-Uzongu Hx Past Med/Social Hx: Reviewed Nursing Past Med/Soc Hx Patient Social History Recent Foreign Travel: No Contact w/Someone Who Travel: No Recent Hopitalizations: No Immunizations Up To Date Date of Pneumonia Vaccine: Dec 03, 2018 Date of Influenza Vaccine: Dec 03, 2018 Seasonal Allergies Seasonal Allergies: No Past Medical History Surgeries: Yes (DIALYSIS PORT) Dialysis Respiratory: No Cardiac: Yes High Cholesterol, Hypertension Neurological: No Genitourinary: Yes Dialysis Gastrointestinal: Yes Polyps Musculoskeletal: No Endocrine: Yes Diabetes, Insulin dep HEENT: No Cancer: No Psychosocial: No Integumentary: No Family Medical History Other Conditions/Hx Physical Exam Vital Signs Vital Signs - First Documented 02/09/19 16:29 Temp 36.9 Pulse 88 Resp 20 B/P (MAP) 125/59 (81) Pulse Ox 99 O2 Delivery Room Air Capillary Refill : Height, Weight, BMI Height: '" Weight: lbs. oz. kg; 34.92 BMI Method: General Appearance: WD/WN, no apparent distress HEENT: other (decreased vision in the left eye, nonacute) Cardiovascular: regular rate, rhythm, no edema Respiratory: lungs clear, normal breath sounds Gastrointestinal: soft Extremities: normal range of motion Motor/Sensory: no motor deficit Progress/Results/Core Measures Results/Orders Lab Results Laboratory Tests Test 02/09/19 16:24 Range/Units White Blood Count 7.6 4.3-11.0 10^3/uL Red Blood Count 4.38 4.35-5.85 10^6/uL Hemoglobin 14.0 13.3-17.7 G/DL Hematocrit 41 40-54 % Mean Corpuscular Volume 93 80-99 FL Mean Corpuscular Hemoglobin 32 25-34 PG Mean Corpuscular Hemoglobin Concent 35 32-36 G/DL Red Cell Distribution Width 13.1 10.0-14.5 % Platelet Count 184 130-400 10^3/uL Mean Platelet Volume 10.5 H 7.4-10.4 FL Sodium Level 140 135-145 MMOL/L Potassium Level 3.4 L 3.6-5.0 MMOL/L Chloride Level 91 L 98-107 MMOL/L Carbon Dioxide Level 31 21-32 MMOL/L Anion Gap 18 H 5-14 MMOL/L Blood Urea Nitrogen 22 H 7-18 MG/DL Creatinine 4.37 H 0.60-1.30 MG/DL Estimat Glomerular Filtration Rate 14 BUN/Creatinine Ratio 5 Glucose Level 206 H 70-105 MG/DL Calcium Level 9.0 8.5-10.1 MG/DL My Orders Orders - KINGA VICENTE DO Ct Head Wo (02/09/19 16:20) Basic Metabolic Panel (02/09/19 16:20) Cbc No Diff (02/09/19 16:20) Acetaminophen Tablet (Tylenol Tablet) (02/09/19 16:20) Vital Signs/I&O 02/09/19 16:29 Temp 36.9 Pulse 88 Resp 20 B/P (MAP) 125/59 (81) Pulse Ox 99 O2 Delivery Room Air Progress Progress Note : Time: 17:47 Progress Note Patient headache is completely resolved. Patient with a BNP consistent with dialysis patient otherwise normal CT head and no acute worrisome labs. Patient will be discharged home in stable condition. Patient has known decreased vision in the left eye and needs to continue to keep his appointments with his eye doctor. Along with the specialist. Departure Impression Primary Impression: Headache Qualified Codes: R51 - Headache Additional Impression: Dependence on renal dialysis Disposition: HOME, SELF-CARE Condition: Stable Departure-Patient Inst. Referrals: NO,LOCAL PHYSICIAN (PCP/Family) Primary Care Physician Patient Instructions: Headache, Adult (DC), Tension Headache (DC) Add. Discharge Instructions: Tylenol as needed for headache The Emergency Department focuses on treating and ruling out life-threatening diseases. Whenever possible, a diagnosis is given. However most patient's are given an impression based on the history, physical exam, and workup during their brief time in the ER. Information about probable diagnosis and other educational material has been provided. Please take the time to read and understand this information. It is very important that he follow up with a doctor as discussed during her visit today. Failure to adhere to your follow-up instructions may result in severe disability, injury or so please make sure to keep your appointments. Please keep in mind the emergency department is not designed to be your primary care or "family doctor" and not urgent issues are best evaluated by an outpatient physician KINGA VICENTE DO Feb 09, 2019 16:20 POS
[2019-02-09 16:31] LABS: MEAN PLATELET VOLUME 10.5 FL (7.4-10.4); RED CELL DISTRIBUTION WIDTH 13.1 % (10.0-14.5); WHITE BLOOD COUNT 7.6 10^3/uL (4.3-11.0)
[2019-02-09 16:47] LABS: CREATININE SERUM 4.37 MG/DL (0.60-1.30); POTASSIUM 3.4 MMOL/L (3.6-5.0)
--- NOTE | 2019-02-09 17:41 | Diagnostic Imaging Report ---
CLINICAL INDICATION: Patient with headache. EXAM: Axial CT scan of the brain performed without IV contrast. Auto Exposure Controls were utilized during the CT exam to meet ALARA standards for radiation dose reduction. COMPARISON: None. FINDINGS: There is skull streak artifact which obscures portions of the brainstem, posterior fossa, and portions of the brain near the skull base. There is no evidence of acute cerebral infarct, intracranial hemorrhage, or gross mass effect. The brain parenchymal volume appears appropriate for patient's age. There are small areas of low attenuation involving the inferior left cerebellum, likely related to chronic ischemic changes. There are subtle low-attenuation white matter changes involving both cerebral hemispheres, likely representing subtle chronic small vessel ischemic changes. There is normal melchor-white matter distinction. There is no significant midline shift or herniation. There is no evidence of hydrocephalus. The basal cisterns are unremarkable. The skull, extracranial soft tissue, and orbits are unremarkable. The paranasal sinuses are unremarkable. Temporal bones show no significant abnormality. IMPRESSION: 1: There is no evidence of acute intracranial process. 2: Likely mild chronic small vessel ischemic disease and small chronic ischemic changes involving the inferior left cerebellum. 3: Otherwise, unremarkable CT scan of the brain. Dictated by: Dictated on workstation # [id number]
[2019-02-09 18:00] VITALS: BP 146/78
== END 2019-02-09 18:03 | disposition home or self-care (01) ==
LOC: EDUNIT# 16:14 → ER 16:15
DX: R51 Headache (principal); I10 Essential (primary) hypertension; E78.00 Pure hypercholesterolemia, unspecified; E11.9 Type 2 diabetes mellitus without complications; Z86.010 Personal history of colon polyps; Z99.2 Dependence on renal dialysis; Z79.4 Long term (current) use of insulin
CPT/HCPCS: 36415; 70450; 80048; 85027